=== PATIENT | female | born 1955 | race Asian ===

== ENCOUNTER → 2016-08-28 | Outpatient (CLI) | payer OTHER | END | disposition home or self-care (01) | LOC: RADPV 08:10 | PROVIDERS: ATTEND Legal Medicine | DX: M47.812 Spondylosis without myelopathy or radiculopathy, cervical region (principal); M53.82 Other specified dorsopathies, cervical region; M19.012 Primary osteoarthritis, left shoulder | CPT/HCPCS: 72040 ==

== ENCOUNTER → 2016-09-26 | Outpatient (CLI) | payer OTHER | END | disposition home or self-care (01) | LOC: RADMN 16:53 | PROVIDERS: ATTEND Legal Medicine | DX: R06.4 Hyperventilation (principal); I51.7 Cardiomegaly; J92.9 Pleural plaque without asbestos | CPT/HCPCS: 71020 ==

== ENCOUNTER → 2016-10-15 | Outpatient (CLI) | payer OTHER ==
[~2016-10-15] MED LIST: IOVERSOL 320 MG/ML 100 ML VIAL ONE; SODIUM CHLORIDE 0.9% 100 ML ONE
== END | disposition home or self-care (01) ==
LOC: RADMN 09:51
PROVIDERS: ATTEND Legal Medicine
DX: E04.1 Nontoxic single thyroid nodule (principal); E04.9 Nontoxic goiter, unspecified; J34.89 Other specified disorders of nose and nasal sinuses; J98.4 Other disorders of lung
CPT/HCPCS: 70491; J7050; Q9967